=== PATIENT | female | born 1950 | race African-American/Black ===

== ENCOUNTER 2016-08-27 02:08 | Emergency (ER) | payer MEDICARE, OTHER ==
[~2016-08-27] VITALS: Ht 170.2 cm; Wt 102.0 kg
[~2016-08-27 02:08] MED LIST: ATOR40TA28 PO; CARB200T6 PO; GABA-533 PO; LISI-660 PO; TRAM50TA4 PO; WARF2.5 PO
[2016-08-27] MEDS ORDERED: HYDR-309 PO (02:17)
[2016-08-27 02:37] LABS: GLUCOSE,POINT OF CARE 117 MG/DL (70-110)
[2016-08-27 02:50] LABS: BASOPHILS # (AUTO) 0.03 K/uL (0.00-0.20); BASOPHILS % (AUTO) 0.3 % (0.0-2.0); EOSINOPHILS # (AUTO) 0.09 K/uL (0.00-0.70); EOSINOPHILS % (AUTO) 0.99 % (1.0-6.0); HEMATOCRIT 43.7 % (36-46); HEMOGLOBIN 14.4 g/dL (12.0-16.0); LYMPHOCYTES # (AUTO) 2.3 K/uL (1.0-4.8); LYMPHOCYTES % (AUTO) 26.3 % (22.0-44.0); MEAN CORPUSCULAR HEMOGLOBIN 31.8 pg (26.0-34.0); MEAN CORPUSCULAR HGB CONC 32.8 G/dL (31.0-37.0); MEAN CORPUSCULAR VOLUME 97 fL (80-100); MONOCYTES # (AUTO) 0.7 K/uL (0.1-1.0); MONOCYTES % (AUTO) 7.5 % (2.0-9.0); NEUTROPHILS # (AUTO) 5.6 K/uL (1.8-7.7); NEUTROPHILS % (AUTO) 64.9 % (40.0-70.0); PLATELET COUNT (AUTO) 244 K/uL (150-450); RED BLOOD CELL COUNT(AUTO) 4.51 MIL/uL (4.00-5.20); RED CELL DISTRIBUTION WIDTH 13.9 % (11.5-14.5); WHITE BLOOD COUNT (AUTO) 8.7 K/uL (4.5-11.0)
[2016-08-27 02:56] LABS: INR 1.1 (0.9-1.1); PROTHROMBIN TIME 11.5 SEC (9.4-11.6)
[2016-08-27] MEDS ORDERED: METOCLOPRAMIDE HCL 5 MG/ML 2 ML VIAL IM ONE (03:15)
[2016-08-27] MEDS ORDERED: DiphenhydrAMINE HCL 50 MG/ML VIAL IM ONE (03:15)
[2016-08-27 03:19] LABS: ALANINE AMINOTRANSFERASE 20 U/L (12-78); ANION GAP 11 mmol/L (8-16); ASPARTATE AMINOTRANSFERASE 19 U/L (15-37); BILIRUBIN,TOTAL 0.6 mg/dL (0.1-1.0); CALCIUM, TOTAL 9.3 mg/dL (8.8-10.5); CARBON DIOXIDE 29 mmol/L (22-29); CHLORIDE 101 mmol/L (98-107); CREATINE KINASE MB 1.4 ng/mL (0-5); CREATINE KINASE, TOTAL 385 U/L (26-192); CREATININE 1.53 mg/dL (0.60-1.30); GLOMERULAR FILTR. RATE CALC 41 mL/min (>60); SODIUM SERUM 141 mmol/L (136-145); UREA NITROGEN, BLOOD 15 mg/dL (7-18)
[2016-08-27 03:24] LABS: B-TYPE NATRIURETIC PEPTIDE 11 pg/mL (0-100); POTASSIUM 2.8 mmol/L (3.5-5.1)
[2016-08-27] MEDS ORDERED: POTASSIUM CHLORIDE 20 MEQ ER TABLET PO ONE (03:30)
[2016-08-27 10:07] VITALS: BP 121/81
== END 2016-08-27 10:13 | disposition home or self-care (01) ==
LOC: EMS 02:10
DX: R07.9 Chest pain, unspecified (principal); G43.909 Migraine, unspecified, not intractable, without status migrainosus; F14.10 Cocaine abuse, uncomplicated; I11.0 Hypertensive heart disease with heart failure; I50.9 Heart failure, unspecified; I20.9 Angina pectoris, unspecified; Z88.5 Allergy status to narcotic agent
CPT/HCPCS: 36415; 71010; 80053; 82550; 82553; 82962; 83880; 84484; 85025; 85610; 85730; 93005; 96372; 99285; J1200; J2765

== ENCOUNTER 2016-12-19 15:46 | Emergency (ER) | payer MEDICARE, OTHER ==
[~2016-12-19] VITALS: Ht 167.6 cm; Wt 95.0 kg
[~2016-12-19 15:46] MED LIST changes: +HYDR-309 PO; -TRAM50TA4 PO
[2016-12-19 17:05] LABS: BASOPHILS % (AUTO) 0.5 % (0.0-2.0); HEMATOCRIT 43.7 % (36-46); HEMOGLOBIN 14.4 g/dL (12.0-16.0); LYMPHOCYTES # (AUTO) 2.8 K/uL (1.0-4.8); MEAN CORPUSCULAR HEMOGLOBIN 31.9 pg (26.0-34.0); MEAN CORPUSCULAR VOLUME 97 fL (80-100); MONOCYTES # (AUTO) 0.9 K/uL (0.1-1.0); MONOCYTES % (AUTO) 8.9 % (2.0-9.0); NEUTROPHILS # (AUTO) 5.9 K/uL (1.8-7.7); NEUTROPHILS % (AUTO) 60.6 % (40.0-70.0); PLATELET COUNT (AUTO) 227 K/uL (150-450); RED BLOOD CELL COUNT(AUTO) 4.53 MIL/uL (4.00-5.20); RED CELL DISTRIBUTION WIDTH 12.8 % (11.5-14.5); WHITE BLOOD COUNT (AUTO) 9.8 K/uL (4.5-11.0)
[2016-12-19 17:26] LABS: ANION GAP 16 mmol/L (8-16); CALCIUM, TOTAL 8.9 mg/dL (8.8-10.5); CARBON DIOXIDE 23 mmol/L (22-29); CHLORIDE 100 mmol/L (98-107); CREATININE 2.28 mg/dL (0.60-1.30); GLOMERULAR FILTR. RATE CALC 26 mL/min (>60); POTASSIUM 3.2 mmol/L (3.5-5.1); SODIUM SERUM 139 mmol/L (136-145); UREA NITROGEN, BLOOD 37 mg/dL (7-18)
[2016-12-19 17:32] LABS: ALANINE AMINOTRANSFERASE 23 U/L (12-78); ALBUMIN 4.5 g/dL (3.4-5.0); ASPARTATE AMINOTRANSFERASE 28 U/L (15-37); BILIRUBIN,TOTAL 0.8 mg/dL (0.1-1.0); TOTAL PROTEIN, SERUM 8.2 g/dL (6.4-8.2)
[2016-12-19 22:02] LABS: GLUCOSE,POINT OF CARE 129 MG/DL (70-110)
[2016-12-20 09:35] VITALS: BP 122/70
== END 2016-12-20 10:32 | disposition home or self-care (01) ==
LOC: EMS 15:48
DX: F19.10 Other psychoactive substance abuse, uncomplicated (principal); Z79.01 Long term (current) use of anticoagulants; Z88.6 Allergy status to analgesic agent; I11.0 Hypertensive heart disease with heart failure; I50.9 Heart failure, unspecified; M19.90 Unspecified osteoarthritis, unspecified site; Z86.73 Personal history of transient ischemic attack (TIA), and cerebral infarction without residual deficits; Z86.718 Personal history of other venous thrombosis and embolism
CPT/HCPCS: 36415; 80053; 82962; 85025; 99285; G0480

== ENCOUNTER 2022-11-10 09:59 | Emergency (ER) | payer OTHER ==
[~2022-11-10] VITALS: Ht 167.6 cm; Wt 106.8 kg
[~2022-11-10 09:59] MED LIST changes: +ACET-2744 PO; -ATOR40TA28 PO; +FLUT16H NASAL; +FLUT1BLS15 IH; -GABA-533 PO; +GABA600T10 PO; -HYDR-309 PO; +LEVE10006 PO; -LISI-660 PO; +METF-1211 PO; +METO25XL PO; +RIVA20TA PO; +SIMV-260 PO; -WARF2.5 PO
[2022-11-10] MEDS ORDERED: ACETAMINOPHEN 325 MG TABLET PO ONE (11:30)
[2022-11-10] MEDS ORDERED: ASPIRIN 325 MG TABLET PO ONE (11:30)
[2022-11-10 11:57] LABS: BASOPHILS % (AUTO) 2.4 % (0.0-2.0); EOSINOPHILS % (AUTO) 1.9 % (1.0-6.0); HEMATOCRIT 42.1 % (36-46); HEMOGLOBIN 13.9 g/dL (12.0-16.0); LYMPHOCYTES # (AUTO) 2.4 K/uL (1.0-4.8); LYMPHOCYTES % (AUTO) 43.5 % (22.0-44.0); MEAN CORPUSCULAR HEMOGLOBIN 32.7 pg (26.0-34.0); MEAN CORPUSCULAR HGB CONC 32.9 G/dL (31.0-37.0); MEAN CORPUSCULAR VOLUME 100 fL (80-100); MONOCYTES # (AUTO) 0.5 K/uL (0.1-1.0); MONOCYTES % (AUTO) 9.9 % (2.0-9.0); NEUTROPHILS # (AUTO) 2.3 K/uL (1.8-7.7); NEUTROPHILS % (AUTO) 42.3 % (40.0-70.0); PLATELET COUNT (AUTO) 228 K/uL (150-450); RED BLOOD CELL COUNT(AUTO) 4.24 MIL/uL (4.00-5.20); RED CELL DISTRIBUTION WIDTH 13.6 % (11.5-14.5)
[2022-11-10 12:07] LABS: ANION GAP 6 mmol/L (8-16); CALCIUM, TOTAL 8.9 mg/dL (8.8-10.5); CARBON DIOXIDE 29 mmol/L (22-29); CHLORIDE 108 mmol/L (98-107); CREATININE 1.01 mg/dL (0.60-1.30); GLOMERULAR FILTR. RATE CALC > 60 mL/min (>60); GLUCOSE,RANDOM 93 mg/dL (70-110); POTASSIUM 4.6 mmol/L (3.5-5.1); SODIUM SERUM 143 mmol/L (136-145); UREA NITROGEN, BLOOD 12 mg/dL (7-18)
[2022-11-10 12:11] LABS: INR 1.2 (0.9-1.1); PROTHROMBIN TIME 12.8 SEC (9.4-11.6)
[2022-11-10 12:12] LABS: ALANINE AMINOTRANSFERASE 14 U/L (12-78); ALBUMIN 3.5 g/dL (3.4-5.0); ALKALINE PHOSPHATASE 71 U/L (46-116); ASPARTATE AMINOTRANSFERASE 12 U/L (15-37); BILIRUBIN,TOTAL 0.4 mg/dL (0.1-1.0); TOTAL PROTEIN, SERUM 7.3 g/dL (6.4-8.2)
[2022-11-10 12:29] LABS: B-TYPE NATRIURETIC PEPTIDE 21 pg/mL (0-100)
[2022-11-10 17:59] VITALS: BP 114/76
== END 2022-11-10 18:09 | disposition home or self-care (01) ==
LOC: EMS 09:59
DX: R07.89 Other chest pain (principal); M54.2 Cervicalgia; M19.90 Unspecified osteoarthritis, unspecified site; G43.909 Migraine, unspecified, not intractable, without status migrainosus; I11.0 Hypertensive heart disease with heart failure; I50.9 Heart failure, unspecified; Z98.890 Other specified postprocedural states; Z88.5 Allergy status to narcotic agent
CPT/HCPCS: 71045; 80053; 83880; 84484; 85025; 85610; 85730; 93005; 99285; 36415-L1; 36415-TC

== ENCOUNTER 2024-03-17 18:50 | Emergency (ER) | payer OTHER ==
[~2024-03-17] VITALS: Ht 167.6 cm; Wt 106.8 kg
[~2024-03-17 18:50] MED LIST changes: +CARB-92 PO; -CARB200T6 PO; +GABA-1404 PO; -GABA600T10 PO
[2024-03-17 18:54] VITALS: BP 139/76; PULSE 85; RESP 18; TEMP 98.1; O2SAT 94
[2024-03-17] MEDS ORDERED: CLOT15CR75 TP (20:53)
[2024-03-17] MEDS ORDERED: CEPH-558 PO (20:53)
[2024-03-17] MEDS ORDERED: DIPH-1243 PO (20:53)
== END 2024-03-17 21:08 | disposition home or self-care (01) ==
LOC: EMS 18:53
DX: L30.9 Dermatitis, unspecified (principal); I11.0 Hypertensive heart disease with heart failure; I50.9 Heart failure, unspecified; E11.9 Type 2 diabetes mellitus without complications; J44.9 Chronic obstructive pulmonary disease, unspecified; Z88.5 Allergy status to narcotic agent
CPT/HCPCS: 82962; 99283

== ENCOUNTER 2024-06-12 12:26 | Inpatient (IN) | payer OTHER ==
[~2024-06-12] VITALS: Ht 167.6 cm; Wt 107.0 kg
[~2024-06-12 12:26] MED LIST changes: +CEPH-558 PO; +CLOT15CR75 TP; +DIPH-1243 PO
[2024-06-12 12:43] LABS: COVID AG,FIA SOURCE NASAL SWAB
[2024-06-12 13:09] LABS: INFLUENZA TYPE A NEGATIVE FOR TYPE A (NEGATIVE); INFLUENZA TYPE B NEGATIVE FOR TYPE B (NEGATIVE); SARS-COV2 (COVID) ANTIGEN,FIA Negative (Negative)
[2024-06-12 14:59] LABS: BASOPHILS % (AUTO) 0.5 % (0.0-2.0); EOSINOPHILS % (AUTO) 1.4 % (1.0-6.0); HEMATOCRIT 42.6 % (36-46); HEMOGLOBIN 13.7 g/dL (12.0-16.0); LYMPHOCYTES # (AUTO) 2.1 K/uL (1.0-4.8); LYMPHOCYTES % (AUTO) 37.5 % (22.0-44.0); MEAN CORPUSCULAR HEMOGLOBIN 32.5 pg (26.0-34.0); MEAN CORPUSCULAR HGB CONC 32.3 G/dL (31.0-37.0); MEAN CORPUSCULAR VOLUME 101 fL (80-100); MONOCYTES # (AUTO) 0.6 K/uL (0.1-1.0); NEUTROPHILS # (AUTO) 2.8 K/uL (1.8-7.7); NEUTROPHILS % (AUTO) 49.6 % (40.0-70.0); PLATELET COUNT (AUTO) 232 K/uL (150-450); RED BLOOD CELL COUNT(AUTO) 4.22 MIL/uL (4.00-5.20); RED CELL DISTRIBUTION WIDTH 13.6 % (11.5-14.5); WHITE BLOOD COUNT (AUTO) 5.7 K/uL (4.5-11.0)
[2024-06-12 15:07] LABS: CALCIUM, TOTAL 9.3 mg/dL (8.8-10.5); CREATININE 1.21 mg/dL (0.60-1.30); POTASSIUM 4.5 mmol/L (3.5-5.1)
[2024-06-12 15:12] LABS: PROTHROMBIN TIME 11.2 SEC (9.4-11.6)
[2024-06-12 15:13] LABS: ALBUMIN 3.3 g/dL (3.4-5.0); BILIRUBIN,DIRECT 0.1 mg/dL (0.00-0.20); BILIRUBIN,TOTAL 0.2 mg/dL (0.1-1.0); TOTAL PROTEIN, SERUM 7.3 g/dL (6.4-8.2)
[2024-06-12 15:25] LABS: TROPONIN I-HIGH SENSITIVITY Less Than 4 ng/L (<51)
[2024-06-12] MEDS ORDERED: RIVA15TA PO (16:09)
[2024-06-12] MEDS ORDERED: TIRZ12.5 SQ (16:09)
[2024-06-12] MEDS ORDERED: GABA-1554 PO (16:09)
[2024-06-12] MEDS ORDERED: IPRA3AMP24 NEB (16:09)
[2024-06-12] MEDS ORDERED: LOSA-381 PO (16:09)
[2024-06-12] MEDS: IPRATROPIUM BROMIDE 0.5 MG/2.5 ML NEB SOLUTION NEB ONE (16:24)
[2024-06-12] MEDS: ALBUTEROL SULFATE 2.5 MG/0.5 ML NEB SOLUTION NEB ONE (16:24)
[2024-06-12] MEDS: MethylPREDNISolone SOD SUCC 125 MG/2 ML VIAL IVP ONE (16:27)
[2024-06-12] MEDS: AZITHROMYCIN 500 MG/NS 250 ML IV ONE (16:27)
[2024-06-12] MEDS: CefTRIAXone 1 GM/DEXTROSE 50 ML IV ONE (16:27)
[2024-06-12 16:30] VITALS: PULSE 71; RESP 20; O2SAT 95
[2024-06-12 16:42] VITALS: PULSE 71; RESP 20; O2SAT 99
[2024-06-12 17:35] LABS: GLUCOMETER DEV NAME(LOC) ER.7; GLUCOSE,POINT OF CARE 102 MG/DL (70-110)
[2024-06-12] MEDS ORDERED: ALBUTEROL SULFATE 2.5 MG/0.5 ML NEB SOLUTION NEB PRN (18:30)
[2024-06-12] MEDS ORDERED: BISACODYL 10 MG RECTAL RECTAL SUPPOSITORY PR PRN (18:30)
[2024-06-12] MEDS ORDERED: DEXTROSE 50%-WATER 25 GM/50 ML SYRINGE IVP PRN (18:30)
[2024-06-12] MEDS ORDERED: DiphenhydrAMINE HCL 25 MG CAPSULE PO PRN (18:30)
[2024-06-12] MEDS ORDERED: MAGNESIUM HYDROXIDE SUSPENSION 30 ML UDCUP PO PRN (18:30)
[2024-06-12] MEDS ORDERED: ONDANSETRON HCL 4 MG/2 ML VIAL IVP PRN (18:30)
[2024-06-12] MEDS ORDERED: IPRATROPIUM BROMIDE 0.5 MG/2.5 ML NEB SOLUTION NEB PRN (18:30)
[2024-06-12 20:00] VITALS: BP 128/72; PULSE 89; RESP 18; O2SAT 94
[2024-06-12] MEDS: LevETIRAcetam 500 MG TABLET PO SCH (20:08)
[2024-06-12] MEDS: DOCUSATE SODIUM 100 MG CAPSULE PO SCH (20:08)
[2024-06-12] MEDS: METOPROLOL SUCCINATE 25 MG ER TABLET PO SCH (20:09)
[2024-06-12] MEDS: GABAPENTIN 400 MG CAPSULE PO SCH (20:09)
[2024-06-12] MEDS: ACETAMINOPHEN 325 MG TABLET PO PRN (20:15)
[2024-06-12] MEDS: RIVAROXABAN 15 MG TABLET PO SCH (20:29)
[2024-06-12] MEDS: INSULIN LISPRO 100 UNITS/ML SQ PRN (22:21)
[2024-06-13] VITALS (8 sets, daily range): BP systolic 114–128; BP diastolic 63–84; PULSE 88–99; RESP 18–20; TEMP 97.8–98.1; O2SAT 92–95
[2024-06-13] MEDS: MethylPREDNISolone SOD SUCC 125 MG/2 ML VIAL IVP SCH (00:13)
[2024-06-13 04:56] LABS: GLUCOMETER DEV NAME(LOC) 5S.2D; GLUCOSE,POINT OF CARE 178 MG/DL (70-110)
[2024-06-13 07:27] LABS: GLUCOMETER DEV NAME(LOC) 5S.2D; GLUCOSE,POINT OF CARE 180 MG/DL (70-110)
[2024-06-13] MEDS: FLUTICASONE PROPIONATE 50 MCG/SPRAY 16 GM NASAL SPRAY NASAL SCH (08:28)
[2024-06-13] MEDS: SIMVASTATIN 20 MG TABLET PO SCH (08:29)
[2024-06-13] MEDS: LOSARTAN POTASSIUM 25 MG TABLET PO SCH (08:29)
[2024-06-13] MEDS: PANTOPRAZOLE SODIUM 40 MG DR TABLET PO SCH (08:29)
[2024-06-13 11:30] LABS: GLUCOMETER DEV NAME(LOC) 5N.2C; GLUCOSE,POINT OF CARE 170 MG/DL (70-110)
[2024-06-13] MEDS ORDERED: SODIUM CHLORIDE 0.9% 250 ML IV ONE (15:17)
[2024-06-13] MEDS: CefTRIAXone 1 GM/DEXTROSE 50 ML IV SCH (15:20)
[2024-06-13] MEDS: AZITHROMYCIN 500 MG/NS 250 ML IV SCH (17:18)
[2024-06-13 17:46] LABS: GLUCOMETER DEV NAME(LOC) 5N.2C; GLUCOSE,POINT OF CARE 215 MG/DL (70-110)
[2024-06-13] MEDS: IPRATROPIUM BROMIDE 0.5 MG/2.5 ML NEB SOLUTION NEB SCH (19:42)
[2024-06-13] MEDS: ALBUTEROL SULFATE 2.5 MG/0.5 ML NEB SOLUTION NEB SCH (23:53)
[2024-06-14] VITALS (16 sets, daily range): BP systolic 105–122; BP diastolic 55–70; PULSE 89–102; RESP 17–25; TEMP 97.5–98.4; O2SAT 82–100
[2024-06-14 01:01] LABS: GLUCOMETER DEV NAME(LOC) 5S.2D; GLUCOSE,POINT OF CARE 227 MG/DL (70-110)
[2024-06-14 04:26] LABS: GLUCOMETER DEV NAME(LOC) 5N.2C; GLUCOSE,POINT OF CARE 253 MG/DL (70-110)
[2024-06-14 06:11] LABS: BASOPHILS % (AUTO) 0.3 % (0.0-2.0); EOSINOPHILS % (AUTO) 0 % (1.0-6.0); HEMATOCRIT 41.8 % (36-46); HEMOGLOBIN 13.7 g/dL (12.0-16.0); LYMPHOCYTES # (AUTO) 0.6 K/uL (1.0-4.8); LYMPHOCYTES % (AUTO) 5.6 % (22.0-44.0); MEAN CORPUSCULAR HEMOGLOBIN 33.2 pg (26.0-34.0); MEAN CORPUSCULAR HGB CONC 32.8 G/dL (31.0-37.0); MEAN CORPUSCULAR VOLUME 101 fL (80-100); MONOCYTES # (AUTO) 0.2 K/uL (0.1-1.0); MONOCYTES % (AUTO) 2.2 % (2.0-9.0); NEUTROPHILS # (AUTO) 10.1 K/uL (1.8-7.7); PLATELET COUNT (AUTO) 253 K/uL (150-450); RED BLOOD CELL COUNT(AUTO) 4.13 MIL/uL (4.00-5.20)
[2024-06-14 06:18] LABS: NEUTROPHILS % (AUTO) 91.9 % (40.0-70.0)
[2024-06-14 06:28] LABS: CALCIUM, TOTAL 8.8 mg/dL (8.8-10.5); CREATININE 1.4 mg/dL (0.60-1.30); POTASSIUM 4.5 mmol/L (3.5-5.1)
[2024-06-14 07:41] LABS: GLUCOMETER DEV NAME(LOC) 5S.2D; GLUCOSE,POINT OF CARE 260 MG/DL (70-110)
[2024-06-14 08:34] LABS: RBC MORPHOLOGY COMMENT ABNORMAL RBC MORPH
[2024-06-14 12:35] LABS: GLUCOMETER DEV NAME(LOC) 5S.2D; GLUCOSE,POINT OF CARE 249 MG/DL (70-110)
[2024-06-14] MEDS: MethylPREDNISolone SOD SUCC 125 MG/2 ML VIAL IVP SCH (17:10)
[2024-06-15] VITALS (16 sets, daily range): BP systolic 106–134; BP diastolic 52–92; PULSE 87–142; RESP 18–20; TEMP 97.5–98; O2SAT 94–99
[2024-06-15 07:42] LABS: BASOPHILS % (AUTO) 0.4 % (0.0-2.0); EOSINOPHILS % (AUTO) 0 % (1.0-6.0); HEMATOCRIT 39.4 % (36-46); LYMPHOCYTES # (AUTO) 0.8 K/uL (1.0-4.8); LYMPHOCYTES % (AUTO) 6.7 % (22.0-44.0); MEAN CORPUSCULAR HEMOGLOBIN 33.1 pg (26.0-34.0); MEAN CORPUSCULAR HGB CONC 32.9 G/dL (31.0-37.0); MEAN CORPUSCULAR VOLUME 101 fL (80-100); MONOCYTES # (AUTO) 0.4 K/uL (0.1-1.0); MONOCYTES % (AUTO) 3.9 % (2.0-9.0); NEUTROPHILS # (AUTO) 10.2 K/uL (1.8-7.7); PLATELET COUNT (AUTO) 251 K/uL (150-450); RED BLOOD CELL COUNT(AUTO) 3.91 MIL/uL (4.00-5.20); RED CELL DISTRIBUTION WIDTH 13.8 % (11.5-14.5); WHITE BLOOD COUNT (AUTO) 11.4 K/uL (4.5-11.0)
[2024-06-15 07:56] LABS: CALCIUM, TOTAL 8.9 mg/dL (8.8-10.5); CREATININE 1.25 mg/dL (0.60-1.30); POTASSIUM 4.8 mmol/L (3.5-5.1)
[2024-06-15 07:57] LABS: RBC MORPHOLOGY COMMENT ABNORMAL RBC MORPH
[2024-06-15 11:46] LABS: GLUCOMETER DEV NAME(LOC) 5N.2C; GLUCOSE,POINT OF CARE 220 MG/DL (70-110)
[2024-06-15 11:46] LABS: GLUCOMETER DEV NAME(LOC) 5N.2C; GLUCOSE,POINT OF CARE 278 MG/DL (70-110)
[2024-06-15 11:46] LABS: GLUCOMETER DEV NAME(LOC) 5N.2C; GLUCOSE,POINT OF CARE 343 MG/DL (70-110)
[2024-06-15 12:31] LABS: GLUCOMETER DEV NAME(LOC) 5S.2D; GLUCOSE,POINT OF CARE 246 MG/DL (70-110)
[2024-06-15] MEDS: NITROGLYCERIN 0.4 MG SUBLINGUAL TABLET #25 SL PRN (13:11)
[2024-06-15] MEDS: DILTIAZEM HCL 5 MG/ML 5 ML VIAL IVP ONE (13:44)
[2024-06-15 14:56] LABS: TROPONIN I-HIGH SENSITIVITY Less Than 4 ng/L (<51)
[2024-06-15] MEDS: AMIODARONE HCL 150 MG in DEXTROSE 5%-WATER 97 ML IV ONE (16:44)
[2024-06-15] MEDS: AMIODARONE HCL 360 MG in DEXTROSE 5%-WATER 242.8 ML IV ONE (16:52)
[2024-06-15 17:30] LABS: GLUCOMETER DEV NAME(LOC) 5S.2D; GLUCOSE,POINT OF CARE 229 MG/DL (70-110)
[2024-06-15] MEDS: AMIODARONE HCL 540 MG in DEXTROSE 5%-WATER 239.2 ML IV ONE (21:55)
[2024-06-16] VITALS (13 sets, daily range): BP systolic 110–133; BP diastolic 64–89; PULSE 70–110; RESP 16–20; TEMP 97.6–98.2; O2SAT 94–99
[2024-06-16 06:35] LABS: BASOPHILS % (AUTO) 0.4 % (0.0-2.0); EOSINOPHILS % (AUTO) 0.3 % (1.0-6.0); HEMATOCRIT 41.4 % (36-46); HEMOGLOBIN 13.7 g/dL (12.0-16.0); LYMPHOCYTES # (AUTO) 1.2 K/uL (1.0-4.8); LYMPHOCYTES % (AUTO) 10.3 % (22.0-44.0); MEAN CORPUSCULAR HEMOGLOBIN 33.2 pg (26.0-34.0); MEAN CORPUSCULAR HGB CONC 33.2 G/dL (31.0-37.0); MEAN CORPUSCULAR VOLUME 100 fL (80-100); MONOCYTES # (AUTO) 0.6 K/uL (0.1-1.0); MONOCYTES % (AUTO) 4.9 % (2.0-9.0); NEUTROPHILS # (AUTO) 9.8 K/uL (1.8-7.7); NEUTROPHILS % (AUTO) 84.1 % (40.0-70.0); PLATELET COUNT (AUTO) 274 K/uL (150-450); RED BLOOD CELL COUNT(AUTO) 4.14 MIL/uL (4.00-5.20); RED CELL DISTRIBUTION WIDTH 14.1 % (11.5-14.5); WHITE BLOOD COUNT (AUTO) 11.6 K/uL (4.5-11.0)
[2024-06-16 07:05] LABS: CALCIUM, TOTAL 8.7 mg/dL (8.8-10.5); CREATININE 1.38 mg/dL (0.60-1.30); POTASSIUM 5.1 mmol/L (3.5-5.1); THYROID STIMULATING HORMONE 0.27 uIU/mL (0.36-3.74)
[2024-06-16 07:08] LABS: TROPONIN I-HIGH SENSITIVITY 8 ng/L (<51)
[2024-06-16] MEDS: AMIODARONE HCL 200 MG TABLET PO SCH (09:16)
[2024-06-16 09:33] LABS: T4 (THYROXINE) 8.1 mcg/dL (4.7-13.3)
[2024-06-16 11:20] LABS: GLUCOMETER DEV NAME(LOC) 5S.2D; GLUCOSE,POINT OF CARE 289 MG/DL (70-110)
[2024-06-16 11:20] LABS: GLUCOMETER DEV NAME(LOC) 5S.2D; GLUCOSE,POINT OF CARE 172 MG/DL (70-110)
[2024-06-16 14:35] LABS: GLUCOMETER DEV NAME(LOC) 5S.2D; GLUCOSE,POINT OF CARE 219 MG/DL (70-110)
[2024-06-16] MEDS ORDERED: AMIODARONE HCL 750 MG in DEXTROSE 5%-WATER 485 ML IV SCH (15:45)
[2024-06-16 16:42] LABS: FREE T4 (FREE THYROXINE) 0.9 ng/dL (0.76-1.46)
[2024-06-16] MEDS: ZOLPIDEM TARTRATE 5 MG TABLET PO PRN (21:13)
[2024-06-17] VITALS (7 sets, daily range): BP systolic 113–136; BP diastolic 74–80; PULSE 63–105; RESP 18–20; TEMP 97.6–98; O2SAT 92–98
[2024-06-17 06:16] LABS: GLUCOMETER DEV NAME(LOC) 5S.2D; GLUCOSE,POINT OF CARE 241 MG/DL (70-110)
[2024-06-17 06:17] LABS: GLUCOMETER DEV NAME(LOC) 5N.2C; GLUCOSE,POINT OF CARE 220 MG/DL (70-110)
[2024-06-17 09:11] LABS: BASOPHILS % (AUTO) 0.3 % (0.0-2.0); EOSINOPHILS % (AUTO) 1.2 % (1.0-6.0); HEMATOCRIT 43.3 % (36-46); HEMOGLOBIN 14.2 g/dL (12.0-16.0); LYMPHOCYTES # (AUTO) 1.5 K/uL (1.0-4.8); MEAN CORPUSCULAR HEMOGLOBIN 32.5 pg (26.0-34.0); MEAN CORPUSCULAR HGB CONC 32.7 G/dL (31.0-37.0); MEAN CORPUSCULAR VOLUME 99 fL (80-100); MONOCYTES # (AUTO) 0.7 K/uL (0.1-1.0); MONOCYTES % (AUTO) 5.6 % (2.0-9.0); NEUTROPHILS % (AUTO) 80.9 % (40.0-70.0); PLATELET COUNT (AUTO) 279 K/uL (150-450); RED BLOOD CELL COUNT(AUTO) 4.36 MIL/uL (4.00-5.20); RED CELL DISTRIBUTION WIDTH 13.8 % (11.5-14.5); WHITE BLOOD COUNT (AUTO) 12.4 K/uL (4.5-11.0)
[2024-06-17 09:19] LABS: CALCIUM, TOTAL 8.6 mg/dL (8.8-10.5); CREATININE 1.36 mg/dL (0.60-1.30); POTASSIUM 5.1 mmol/L (3.5-5.1)
[2024-06-17 09:25] LABS: ALBUMIN 3.2 g/dL (3.4-5.0); BILIRUBIN,TOTAL 0.4 mg/dL (0.1-1.0); TOTAL PROTEIN, SERUM 6.9 g/dL (6.4-8.2)
[2024-06-17] MEDS ORDERED: SODIUM CHLORIDE 0.9% 500 ML IV ONE (09:40)
[2024-06-17] MEDS ORDERED: AMOX-457 PO (12:12)
[2024-06-17] MEDS ORDERED: BENZ-227 PO (12:12)
[2024-06-17] MEDS ORDERED: AMIO200 PO (12:12)
[2024-06-17] MEDS ORDERED: PRED-729 PO (12:12)
[2024-06-17] MEDS ORDERED: DOCU-385 PO (12:12)
[2024-06-17] MEDS ORDERED: GUAIF600 PO (12:12)
[2024-06-17] MEDS: PredniSONE 20 MG TABLET PO ONE (12:18)
[2024-06-17 16:21] LABS: GLUCOMETER DEV NAME(LOC) 5S.2D; GLUCOSE,POINT OF CARE 298 MG/DL (70-110)
[2024-06-17 16:21] LABS: GLUCOMETER DEV NAME(LOC) 5S.2D; GLUCOSE,POINT OF CARE 189 MG/DL (70-110)
== END 2024-06-17 14:31 | disposition home or self-care (01) | DRG 190 ==
LOC: EMS 12:26 → EDH 16:54 → 5S 18:11
PROVIDERS: ADMIT Hospitalist; ATTEND Hospitalist
DX: J44.1 Chronic obstructive pulmonary disease with (acute) exacerbation (principal); J15.69 Pneumonia due to other Gram-negative bacteria; J15.9 Unspecified bacterial pneumonia; I13.0 Hypertensive heart and chronic kidney disease with heart failure and stage 1 through stage 4 chronic kidney disease, or unspecified chronic kidney disease; J44.0 Chronic obstructive pulmonary disease with (acute) lower respiratory infection; I48.0 Paroxysmal atrial fibrillation; G40.909 Epilepsy, unspecified, not intractable, without status epilepticus; E66.9 Obesity, unspecified; E11.22 Type 2 diabetes mellitus with diabetic chronic kidney disease; Z20.822 Contact with and (suspected) exposure to COVID-19; H54.8 Legal blindness, as defined in USA; I50.9 Heart failure, unspecified; G43.909 Migraine, unspecified, not intractable, without status migrainosus; N18.30 Chronic kidney disease, stage 3 unspecified; Z79.01 Long term (current) use of anticoagulants; Z82.49 Family history of ischemic heart disease and other diseases of the circulatory system; Z86.718 Personal history of other venous thrombosis and embolism; Z86.73 Personal history of transient ischemic attack (TIA), and cerebral infarction without residual deficits; Z88.5 Allergy status to narcotic agent; Z68.38 Body mass index [BMI] 38.0-38.9, adult
CPT/HCPCS: 71045; 80048; 80053; 80076; 82962; 83880; 84436; 84439; 84443; 84484; 85025; 85610; 85730; 87040; 87804; 93005; 93306; 94640; 99285; G0378; J0282; J0456; J0696; J2919; J3490; J7040; J7050; J7060; 36415-L1; 36415-TC; J7613